=== PATIENT | female | born 1985 | race Caucasian/White ===

== ENCOUNTER 2016-04-30 09:27 | Emergency (ER) | payer MEDICAID ==
[~2016-04-30] VITALS: Ht 160 cm; Wt 63.6 kg
[~2016-04-30 09:27] MED LIST: MOTRIN 600600 MG/TAB PO; NKDA; PERCOCET 325 MG1 TA2 PO; PRENATAL1 TA1 PO
[2016-04-30 09:30] VITALS: TEMP 98.3
[2016-04-30] MEDS ORDERED: PROZAC 20MG20 MG PO (09:32)
[2016-04-30 10:08] LABS: BASO % 0.3 % (0.0-2.0); EOS # 0.1 (0.0-0.7); GRAN # 10.1 (1.4-6.5); GRAN % 79.6 % (42.2-75.2); HEMATOCRIT 38.8 % (37.0-47.0); HEMOGLOBIN 13.7 g/dl (12.5-16.0); LYMPH # 1.7 (1.2-3.4); LYMPH % 13.5 % (20.0-51.0); MEAN CELL VOLUME 87 fl (80.0-100.0); MEAN CORPUSCULAR HEMOGLOBIN 31 pg (27.0-31.0); MEAN CORPUSCULAR HGB CONC 35 g/dl (33.0-37.0); MEAN PLATELET VOLUME 9.4 fl (7.4-10.4); MONO # 0.7 (0.1-0.6); MONO % 5.2 % (1.7-9.3); PLATELET COUNT 281 K/mm3 (130-400); RED BLOOD COUNT 4.45 M/mm3 (4.10-5.30); WHITE BLOOD COUNT 12.6 K/mm3 (4.8-10.8)
[2016-04-30 10:15] LABS: PH 5 (5-8); SQUAMOUS EPITHELIAL 0-2 /hpf; URINE APPEARANCE Hazy; URINE BACTERIA None Seen /hpf; URINE BILIRUBIN Negative (NEGATIVE); URINE BLOOD 3+ (NEGATIVE); URINE COLOR Yellow; URINE GLUCOSE Negative (NEGATIVE); URINE KETONE Negative (NEGATIVE); URINE RBC >50 /hpf; URINE UROBILINOGEN Negative (NEGATIVE); URINE WBC 0-2 /hpf
[2016-04-30 10:18] LABS: ADJUSTED CALCIUM 9.5 mg/dL (8.4-10.2); ALBUMIN 4.4 gm/dL (3.5-5.0); CALCIUM 9.8 mg/dL (8.4-10.2); CREATININE, serum 0.99 mg/dL (0.52-1.25); POTASSIUM 3.6 mmol/L (3.4-5.0); TOTAL PROTEIN 7.8 gm/dL (6.4-8.2)
[2016-04-30] MEDS ORDERED: LEVAQUIN 750MG750 M1 PO (11:35)
[2016-04-30] MEDS ORDERED: NORCO 325 MG-7.1 TAB PO (11:35)
[2016-04-30] MEDS ORDERED: ZOFRAN ODT4 MG PO (11:35)
[2016-04-30 12:02] VITALS: BP 111/80; PULSE 60
== END 2016-04-30 12:06 | disposition home or self-care (01) ==
LOC: COL.ER 09:27
PROVIDERS: Emergency Medicine
DX: R10.32 Left lower quadrant pain (principal); N13.2 Hydronephrosis with renal and ureteral calculous obstruction
CPT/HCPCS: J0696; J1170; J2405; J7030; Q9967